=== PATIENT | female | born 1960 | race Caucasian/White ===

== ENCOUNTER 2019-07-21 12:11 | Day surgery (SDC) | payer MEDICARE, OTHER ==
[~2019-07-21] VITALS: Ht 160 cm; Wt 69.4 kg
[~2019-07-21 12:11] MED LIST: ACID REDUCER150 MG PO; CALCIUM 600 +1 EAC6 PO; CRANBERRY200 MG PO; CRANBERRY250 MG PO; DAILY VITAMIN1 EAC2 PO; DEXAMETHASONE1 MG PO; DEXAMETHASONE2 MG PO; DEXAMETHASONE4 MG PO; DIPHENOXYLATE-1 EACH PO; FISH OIL 1,0001 EAC1 PO; FISH OIL 1,0001 EAC2 PO; GLUCOSAMINE &1 EAC1 PO; GLUCOSAMINE1000 MG PO; HYDROXYZINE HCL25 MG PO; KEYTRUDA100 MG/4 M IV; LORAZEPAM1 MG PO; MACROBID 100 M100 MG PO; ONDANSETRON ODT4 MG; ONDANSETRON ODT8 MG SL; PERCOCET 7.5-31 EACH PO; PREDNISONE10 MG PO; VITAMIN C500 M1 PO; VITAMIN D2000 UNI1 PO; WOMEN'S DAILY1 EAC1 PO
--- NOTE | 2019-07-21 13:59 | NUR ---
07/21/19 4665 Deborah Knott 1359: PT ARRIVES TO PACU ON LEFT SIDE, EYES OPEN. RESP EVEN AND UNLABORED ON 3L VIA NC, SATS GREATER THAN 90%. PT CONVERSES WITH RN APPROPRIATELY, STATES "SOME DISCOMFORT AND BLOATING" IN ABD WHEN ASKED ABOUT PAIN. DENIES NAUSEA.
--- NOTE | 2019-07-22 16:20 | OR ---
[facility] [address] [place], [place] [address] Signed DATE OF OPERATION: 07/21/2019 SURGEON: Lit Macias MD PREOPERATIVE DIAGNOSES: 1. History of widely metastatic melanoma. 2. History of ileocecal resection for intussusception in 2013. 3. Complete remission of widely metastatic melanoma. POSTOPERATIVE DIAGNOSES: 1. Small polyp of sigmoid. 2. Mild proctitis. PROCEDURE: Total colonoscopy to ileocolonic anastomosis with excision of sigmoid polyp and biopsy of rectum. ANESTHESIA: Intravenous sedation, fentanyl 200 mcg, Versed 8 mg. INDICATION: This 58-year-old white woman is a patient of Dr. Rodriguez and currently Dr. Akbar Peña DO, of [place]. She has a complex past history in 2013 for advanced melanoma including sternum, liver, and elsewhere and underwent ileocecal resection for intussusception related to melanoma by me in November of 2013. She has had radiation therapy and chemotherapy and ultimately Keytruda immunotherapy and now enjoys a complete remission without evidence of active tumor at this time. She is referred for screening colonoscopy, though she has no symptoms of bleeding, diarrhea or constipation. Notably, she underwent colonoscopy in 2015 where she had a hyperplastic polyp resected. She understands the risks of bleeding, infection, and perforation related to colonoscopy and wished to proceed. DESCRIPTION OF PROCEDURE: The patient was brought to the endoscopy suite and placed in the lateral decubitus position, given intravenous sedation to the point of slurred speech and nystagmus. Digital rectal examination was normal. The Olympus video colonoscope was passed in the rectum and manipulated throughout the colon. In the sigmoid, angulation deformity was rather significant. Various maneuvers Electronically Signed By: LIT MACIAS MD 07/22/19 1620 PATIENT NAME: CARON ALTMAN OPERATIVE REPORT DATE OF : 58 REPORT #: [id number] PHYSICIAN: LIT MACIAS MD PCP: AKBAR PEÑA DO REPORT IS CONFIDENTIAL AND NOT TO BE RELEASED WITHOUT AUTHORIZATION [facility] [address] [place], [place] [address] Signed were undertaken to pass the scope, but it was not possible; therefore, the scope was removed and another scope obtained, considered more probable to have additional capabilities. The scope was once again advanced and with various maneuvers, ultimately advanced beyond the sigmoid where the scope was passed ultimately to the ileocolic anastomosis. The ileum was intubated for several centimeters and was completely normal. The scope was withdrawn and withdrawal of scope showed the anastomosis itself to be widely patent. Careful withdrawal of scope showed no sign of abnormality until the sigmoid where a small sessile polyp was noted. This was excised with cold morcellation technique. The scope was further withdrawn and retroflexed view in the rectum showed mild proctitis, probably bowel prep related. This was biopsied. The scope was removed. The patient was taken to recovery room in good condition. CONCLUSION DIAGNOSIS: Polyp of sigmoid, completely excised. Uncertain if hyperplastic or adenomatous. PLAN: I would recommend repeat colonoscopy in 5 years sooner if clinically indicated unless the pathology report proves a more frequent interval to be appropriate. She will return to the ongoing care of Dr. Rodriguez and Dr. Akbar Peña, Angi Whitley Rodriguez. Lit Macias MD JM/MODL /[id number] cc: MD Shaggy Munoz MD [facility] Akbar Peña DO Copies: ELLIOTT RODRIGUEZ MD Electronically Signed By: LIT MACIAS MD 07/22/19 1620 PATIENT NAME: CARON ALTMAN OPERATIVE REPORT DATE OF : 58 REPORT #: [id number] PHYSICIAN: LIT MACIAS MD PCP: AKBAR PEÑA DO REPORT IS CONFIDENTIAL AND NOT TO BE RELEASED WITHOUT AUTHORIZATION [address] [address] Signed AKBAR PEÑA Electronically Signed By: LIT MACIAS MD 07/22/19 1620 PATIENT NAME: CARON ALTMAN OPERATIVE REPORT DATE OF : 58 REPORT #: [id number] PHYSICIAN: LIT MACIAS MD PCP: AKBAR PEÑA DO REPORT IS CONFIDENTIAL AND NOT TO BE RELEASED WITHOUT AUTHORIZATION
--- NOTE | 2019-07-25 17:47 | PATH ---
[facility] [address] [place], [place] [address] Signed SPECIMEN(S): A SIGMOID POLYP SPECIMEN(S): B RECTUM SPECIMEN SOURCE: A. SIGMOID POLYP B. RECTUM CLINICAL HISTORY: Colon screening. MICROSCOPIC DESCRIPTION: Histologic sections of all submitted blocks are examined by light microscopy. These findings, together with the gross examination, support the pathologic diagnosis. FINAL PATHOLOGIC DIAGNOSIS: A. Sigmoid polyp, polypectomy: - Fragments of tubular adenoma. B. Rectum, biopsy: - Fragments of hyperplastic polyp. DDF:emb:C2NR GROSS DESCRIPTION: Two specimens are received in two containers, labeled "TM." A. The specimen, labeled "TM, #1," is received in formalin and consists of two walter soft tissue fragments that measure 0.3 and 0.3 cm in greatest dimension. The specimen is entirely submitted in cassette (A1). B. The specimen, labeled "TM, #2," is received in formalin and consists of one walter soft tissue fragment that measures 0.4 cm in greatest dimension. The specimen is entirely submitted in cassette (B1). FB (under the direct supervision of a pathologist) The Gross Description was prepared using a voice recognition system. The report was reviewed for accuracy; however, sound-alike word errors, addition and/or deletions may occur. If there is any question about this report, please contact Client Services. PERFORMING LABORATORY: The technical component was performed by [facility], [address] [place] [id number] (Metal Alloy Scientist: Susie Amin MD; CLIA# [id number]). Professional interpretation was performed by PATIENT NAME: CARON ALTMAN PATHOLOGY DATE OF : 58 REPORT #: [id number] PHYSICIAN: STEPHAN PATHOLOGY PCP: AKBAR PEÑA DO REPORT IS CONFIDENTIAL AND NOT TO BE RELEASED WITHOUT AUTHORIZATION [address] [place], [place] [address] Signed [facility], [address] [address] (Metal Alloy Scientist: Nirav Matson M.D.; CLIA#: [id number]). Diagnostician: Aman Hastings DO Pathologist Electronically Signed 07/25/2019 Copies: ~ PATIENT NAME: CARON ALTMAN PATHOLOGY DATE OF : 58 REPORT #: [id number] PHYSICIAN: STEPHAN PATHOLOGY PCP: AKBAR PEÑA DO REPORT IS CONFIDENTIAL AND NOT TO BE RELEASED WITHOUT AUTHORIZATION
== END 2019-07-21 14:55 | disposition home or self-care (01) ==
LOC: DS 12:11 → OPS 12:11 → DS 13:00 → OPS 14:55
PROVIDERS: Surgery
PROC: 0DBP8ZX Excision of Rectum, Via Natural or Artificial Opening Endoscopic, Diagnostic (ICD-10-PCS; 2019-07-21)
PROC: 0DBN8ZZ Excision of Sigmoid Colon, Via Natural or Artificial Opening Endoscopic (ICD-10-PCS; principal; 2019-07-21 13:00)
DX: Z12.11 Encounter for screening for malignant neoplasm of colon (principal); D12.5 Benign neoplasm of sigmoid colon; K62.1 Rectal polyp; I47.1 Supraventricular tachycardia; K62.89 Other specified diseases of anus and rectum; Z98.0 Intestinal bypass and anastomosis status; Z85.038 Personal history of other malignant neoplasm of large intestine; Z91.048 Other nonmedicinal substance allergy status; Z98.890 Other specified postprocedural states; Z85.841 Personal history of malignant neoplasm of brain; Z85.830 Personal history of malignant neoplasm of bone
CPT/HCPCS: 99153; G0500; J2250; J3010; J7121

== ENCOUNTER 2019-10-11 18:24 | Emergency (ER) | payer MEDICARE, OTHER ==
[~2019-10-11] VITALS: Ht 160 cm; Wt 65.8 kg
--- OUTSIDE RECORDS SUMMARY | 2019-10-11 18:26 | XMS ---
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 Ryan has no Care Guidelines for this patient. Dori VISIT COUNT (12 MO.) 1 SANDRA Dhillon TOTAL 1 NOTE: Visits indicate total known visits. ED/UCC VISIT TRACKING (12 MO.) 10/11/2019 18:24 SANDRA Chen [place] TYPE: Emergency COMPLAINT: - COUGH/ACHES/FEVER INPATIENT VISIT TRACKING (12 MO.) 12/17/2018 10:25 [facility] TYPE: Neuro Surgery DIAGNOSES: [address]19[address]. Malignant melanoma of skin, unspecified . 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 Secondary malignant neoplasm of brain [email or web address]
== END 2019-10-11 21:44 | disposition home or self-care (01) ==
LOC: ED 18:24
DX: J20.9 Acute bronchitis, unspecified (principal)
CPT/HCPCS: 71046; 80053; 81001; 85025; 87502; 96361; 96374; 99284-25; J2405; J7030

== ENCOUNTER 2020-09-16 07:22 | Emergency (ER) | payer MEDICARE, OTHER ==
[~2020-09-16] VITALS: Ht 160 cm; Wt 68.0 kg
== END 2020-09-16 11:44 | disposition home or self-care (01) ==
LOC: ED 07:22
DX: K92.1 Melena (principal)
CPT/HCPCS: 74177; 80053; 81001; 83690; 85025; 87088; 96374; 99284-25; J2405

== ENCOUNTER 2020-10-12 08:30 | Day surgery (SDC) | payer MEDICARE, OTHER ==
[~2020-10-12] VITALS: Ht 160 cm; Wt 68.2 kg
--- NOTE | ~2020-10-12 | OR ---
[facility] [address] [place], [place] [address] Draft DATE OF OPERATION: 10/12/2020 SURGEON: Cindi Keith MD PREOPERATIVE DIAGNOSIS: Medial meniscus tear, left knee. POSTOPERATIVE DIAGNOSIS: Medial meniscus tear, left knee. PROCEDURE PERFORMED: Left knee arthroscopy with partial medial meniscectomy. HIGH SCHOOL LIBRARIAN: None. ANESTHESIA: General. BLOOD LOSS: Minimal. BRIEF HISTORY: Caron is a 60-year-old female with pain and locking in her knee. MRI was consistent with a large medial meniscus tear. Risks and benefits of operative treatment were discussed with her and she elected to proceed. DESCRIPTION OF PROCEDURE: Once consent was obtained, she was taken to the operating room. After adequate anesthesia, she was placed on the operating table. All downside pressure points were well padded. The right knee was flexed, abducted, and externally rotated on a well-padded leg topete. The left leg was placed in well-padded leg topete along the proximal thigh with no tourniquet. The leg was then prepped and draped in a standard sterile fashion after injecting the portal sites with 0.25% Marcaine with epinephrine under an alcohol prep. The standard inferolateral and superolateral portals were made and the scope was introduced in the knee. ARTHROSCOPIC FINDINGS: The knee showed a moderate synovitis throughout. The patella was noted to track well with no substantial chondromalacia. Medial and lateral gutters were clear. ACL and PCL PATIENT NAME: CARON ALTMAN OPERATIVE REPORT DATE OF : 58 REPORT #: [id number] PHYSICIAN: CINDI KEITH MD PCP: ROBYN HODGE PAC REPORT IS CONFIDENTIAL AND NOT TO BE RELEASED WITHOUT AUTHORIZATION [facility] [address] [place] [id number] Draft were intact. Lateral compartment was intact. Medial compartment showed grade 2 chondromalacia to the femur, grade 1 to the tibia. There was a large tear extending from the mid posterior portion all the way around to the mid body. DESCRIPTION OF OPERATION: Standard inferomedial portal was made after localization using a spinal needle. The straight and curved biters were then used to trim the meniscus tear back to a stable rim anteriorly and posteriorly. The meniscus was then smoothed and feathered out using the shaver. The debris was evacuated and the scope was withdrawn. Portals were closed with 3-0 nylon. The knee was injected with 60 mg Toradol at the end of the case. The wounds were dressed with Adaptic, ABD, and Edwin wrap. She tolerated the procedure well. All sponge, needle, and instrument counts were correct. Cindi Keith MD BA/CARLOTTA /[id number] Copies: ~ PATIENT NAME: CARON ALTMAN OPERATIVE REPORT DATE OF : 58 REPORT #: [id number] PHYSICIAN: CINDI KEITH MD PCP: ROBYN HODGE PAC REPORT IS CONFIDENTIAL AND NOT TO BE RELEASED WITHOUT AUTHORIZATION
[2020-10-12] MEDS ORDERED: DICLOFENAC SODI75 MG PO (10:58)
[2020-10-12] MEDS ORDERED: ASPIRIN325 MG PO (10:58)
[2020-10-12] MEDS ORDERED: HYDROCODON-ACE1 EA10 PO (10:58)
--- NOTE | 2020-10-12 11:24 | NUR ---
10/12/20 Álvaro4 Neeta Keith 1055 PT TO PACU SLEEPING WITH ORAL AIRWAY IN PLACE O2 VIA MASK, NEEDS CHIN THRUST TO MAINTAIN AIRWAY.
--- NOTE | 2020-10-12 11:45 | NUR ---
ICED WATER AND CRACKERS GIVEN. CALL LIGHT IS WITHIN REACH. SPOUSE IS AT THE BEDSIDE. PATIENT IS SITTING UP EATING AND DRINKING AND SHE'S TOLERATING THAT WELL.
--- NOTE | 2020-10-12 13:00 | NUR ---
PATIENT UP TO BATHROOM, STEADY ON FEET. PAIN WELL CONTROLLED. PROVIDED PATIENT WITH DISCHARGE INSTRUCTION, ANSWERED QUESTIONS AND CONCERNS. DRESSING C/D/I. STRONG PEDAL PULSE. PROVIDED PATIENT WITH WHEELCHAIR RIDE TO FRONT, TRANSFERED WELL INTO CAR.
--- NOTE | 2020-10-12 14:31 | EKG ---
[facility] [address] [facility] [place] [address] Signed Normal sinus rhythm Normal ECG When compared with ECG of 13-SEP-2020 11:51, [place] interval has increased ST no longer depressed in Anterior leads Confirmed by ZARI CANO DO ([id number]) on 10/12/2020 2:31:20 PM Electronically Signed By: ZARI CANO DO 10/12/20 1431 PATIENT NAME: CARON ALTMAN Electrocardiogram DATE OF : 58 PHYSICIAN: ZARI CANO DO REPORT #: [id number] REPORT IS CONFIDENTIAL AND NOT TO BE RELEASED WITHOUT AUTHORIZATION
== END 2020-10-12 13:00 | disposition home or self-care (01) ==
LOC: DS 08:30
PROVIDERS: ATTEND Specialist
PROC: 0SBD4ZZ Excision of Left Knee Joint, Percutaneous Endoscopic Approach (ICD-10-PCS; principal; 2020-10-12 11:30)
DX: S83.242A Other tear of medial meniscus, current injury, left knee, initial encounter (principal)
CPT/HCPCS: J0690; J1100; J1885; J2001; J2405; J2704; J3010; J7121

== ENCOUNTER 2025-02-27 12:58 | Day surgery (SDC) | payer MEDICARE, OTHER ==
[~2025-02-27] VITALS: Ht 160 cm; Wt 71.3 kg
[~2025-02-27 12:58] MED LIST changes: +ASPIRIN325 MG PO; +DICLOFENAC SODI75 MG PO; +HYDROCODON-ACE1 EA10 PO; +IBLOOD GLUCOSE TEST STRIP 1 EA TEST VI PRN; +LACTATED RINGER'S 1,000 ML IV SCH; +LIDOCAINE HCL 1% 5 ML SDV INJ ONE; +MIDAZOLAM HCL 5 MG/5 ML VIAL IV PRN; +fentaNYL citrate 100 MCG/2 ML VIAL IV PRN
[2025-02-27 13:32] VITALS: BP 125/68
[2025-02-27] MEDS ORDERED: ST. JOSEPH ASPI81 MG PO (13:34)
[2025-02-27] MEDS ORDERED: MELATONIN5 M2 PO (13:36)
[2025-02-27] MEDS ORDERED: FISH OIL 1,2001 EAC7 PO (13:37)
[2025-02-27] MEDS ORDERED: CANDICIDAL CAP1 EACH PO (13:37)
--- NOTE | 2025-02-27 13:53 | NUR ---
S O LEAVING AND WILL RETURN.
[2025-02-27] MEDS ORDERED: MIDAZOLAM HCL 5 MG/5 ML VIAL ONE (14:01)
[2025-02-27] MEDS ORDERED: fentaNYL citrate 100 MCG/2 ML VIAL ONE (14:02)
--- NOTE | 2025-02-27 15:04 | NUR ---
02/27/25 Pietro4 Marilee Reid SATURATION 100% ON 3L VIA NC. OXYGEN IS DISCONTINUED AT THIST BRAULIO.
[2025-02-27 15:30] VITALS: BP 120/74
--- NOTE | 2025-02-28 11:56 | OR ---
[facility] [address] [place], [place] [address] Signed DATE OF OPERATION: 02/27/2025 SURGEON: Lit Macias MD PREOPERATIVE DIAGNOSES: 1. History of polyps in 2019. 2. History of stage IV metastatic melanoma in 2013, in complete and total remission. POSTOPERATIVE DIAGNOSIS: Small polyp, hepatic flexure area, otherwise normal. PROCEDURE: Total colonoscopy to ileocolonic anastomosis with cold morcellation polypectomy x1. ANESTHESIA: Intravenous sedation, fentanyl 150 mcg, and Versed 7 mg. INDICATION: This 64-year-old white woman is a patient Dr. Mathews of [place] and Dr. Matos locally. 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 Her initial presentation was left supraclavicular adenopathy, confirming metastatic melanoma. She had hepatic and other distant metastatic disease and ultimately metastatic disease to the ileocecal area causing intussusception requiring partial resection. With the use of interleukin-2 as well as pembrolizumab and ongoing therapy. She had complete resolution. She did have a craniotomy with resection of cranial metastases, pseudo progression of tumor, but no evidence of viable tumor. She now has no evidence of metastatic disease or any melanoma at all. She is admitted at this time to undergo surveillance colonoscopy having last undergone colonoscopy in 2019. The risk of bleeding, infection, and perforation were reviewed with her. She understands and wished to proceed. FINDINGS: The prep was excellent. Complete colonoscopy was undertaken to the ileocolic anastomosis. There was what appeared to be a somewhat flat polyp in the region of hepatic flexure, though it was not entirely certain if this represented denuded epithelium with manipulation of the scope. Complete excision of that tissue was accomplished, however. Additionally, the ileocolic anastomosis was widely patent without sign of narrowing or other abnormality. Electronically Signed By: LIT MACIAS MD 02/28/25 1156 PATIENT NAME: CARON ALTMAN OPERATIVE REPORT DATE OF : 58 REPORT #: [id number] PHYSICIAN: LIT MACIAS MD PCP: MARI MENDOZA MD REPORT IS CONFIDENTIAL AND NOT TO BE RELEASED WITHOUT AUTHORIZATION [facility] [address] [place], [place] [address] Signed DESCRIPTION OF PROCEDURE: The patient was brought to the endoscopy suite and placed in lateral decubitus position, given intravenous sedation to the point of slurred speech and nystagmus. Digital rectal examination was normal. An Olympus video colonoscope was passed in the rectum and manipulated throughout the colon. A flat mucosal lesion was noted in the region of the hepatic flexure generally speaking and uncertain if this represented denuded epithelium. This was excised with cold morcellation technique. The scope was advanced further to what appeared to be the ileocolonic anastomosis, which was widely patent. The scope was then withdrawn. Examination undertaken showing no sign of other abnormality. Retroflexed view of the rectum was normal. Scope was removed. The patient was taken recovery room in good condition. CONCLUDING DIAGNOSIS: Probable polyp, though uncertain if this does represent adenomatous tissue in fact; widely patent ileocolic anastomosis. PLAN: Recommend repeat colonoscopy in 5-7 years, sooner if symptoms should develop. She will return to the ongoing care of Dr. Patria Mathews of [place], [place] and Kenna Herrera. MD YVETTE Hayes/MODL /[id number] Copies: ~ Electronically Signed By: LIT MACIAS MD 02/28/25 1156 PATIENT NAME: CARON ALTMAN OPERATIVE REPORT DATE OF : 58 REPORT #: [id number] PHYSICIAN: LIT MACIAS MD PCP: MARI MENDOZA MD REPORT IS CONFIDENTIAL AND NOT TO BE RELEASED WITHOUT AUTHORIZATION
--- NOTE | 2025-03-01 19:49 | PATH ---
[facility] [address] [place], [place] [address] Signed SPECIMEN(S): A HEPATIC FLEXURE COLON POLYP SPECIMEN SOURCE: A. HEPATIC FLEXURE COLON POLYP CLINICAL HISTORY: Personal history of colon polyps in 2019, history of metastatic melanoma/polyp FINAL PATHOLOGIC DIAGNOSIS: Colon, hepatic flexure polyp, biopsy: - Colonic mucosa with normal glandular architecture. - Multiple levels are examined with no polypoid structure identified. - Negative for inflammation, dysplasia, and malignancy. SDL MICROSCOPIC EXAMINATION: Histologic sections of all submitted blocks are examined by light microscopy. These findings, together with the gross examination, support the pathologic diagnosis. GROSS DESCRIPTION: The specimen, labeled and designated "Altman, hepatic flexure colon polyp," is received in formalin and consists of four walter soft tissue fragments, ranging from 0.2-0.3 cm. Entirely submitted in (A1). VB (under the direct supervision of a pathologist) The Gross Description was prepared using a voice recognition system. The report was reviewed for accuracy; however, sound-alike word errors, addition and/or deletions may occur. If there are any questions about this report, please contact Client Services. ADDITIONAL NOTES: Immunohistochemical and/or in situ hybridization studies if performed in this case included appropriate positive controls that reacted as expected. This test was developed and its performance characteristics determined by [facility]. It has not been cleared or approved by the U.S. Food and Drug Administration. The FDA has determined that such clearance or approval is not necessary. This test is used for clinical purposes. It should not be regarded as investigational or for research. [facility] is certified under the Clinical Laboratory Improvement Amendments of 1988 (CLIA) as qualified to perform high complexity clinical PATIENT NAME: CARON ALTMAN PATHOLOGY DATE OF : 58 REPORT #: [id number] PHYSICIAN: STEPHAN PATHOLOGY PCP: MARI MENDOZA MD REPORT IS CONFIDENTIAL AND NOT TO BE RELEASED WITHOUT AUTHORIZATION [address] [address] Signed laboratory testing. PERFORMING LABORATORY: Technical component was performed by [facility], [address] [place] [id number] (CLIA# [id number]). Professional interpretation was performed by [facility], [address] [place] [id number] (CLIA#: [id number]). Diagnostician: Rimma Mendoza MD Pathologist Electronically Signed 03/01/2025 Copies: ~ PATIENT NAME: CARON ALTMAN PATHOLOGY DATE OF : 58 REPORT #: [id number] PHYSICIAN: STEPHAN PATHOLOGY PCP: MARI MENDOZA MD REPORT IS CONFIDENTIAL AND NOT TO BE RELEASED WITHOUT AUTHORIZATION
== END 2025-02-27 15:40 | disposition home or self-care (01) ==
LOC: DS 12:58
PROVIDERS: ATTEND Surgery
PROC: 0DBL8ZX Excision of Transverse Colon, Via Natural or Artificial Opening Endoscopic, Diagnostic (ICD-10-PCS; principal; 2025-02-27 14:00)
DX: Z12.11 Encounter for screening for malignant neoplasm of colon (principal); K63.5 Polyp of colon; I47.10 Supraventricular tachycardia, unspecified; Z85.89 Personal history of malignant neoplasm of other organs and systems; Z86.0101 Personal history of adenomatous and serrated colon polyps; Z86.0102 Personal history of hyperplastic colon polyps; Z79.82 Long term (current) use of aspirin; Z91.048 Other nonmedicinal substance allergy status; Z90.49 Acquired absence of other specified parts of digestive tract; Z98.0 Intestinal bypass and anastomosis status
CPT/HCPCS: 88305; 99153; G0500; J2250; J3010; J7121